=== PATIENT | female | born 2000 | race Caucasian/White ===

== ENCOUNTER 2019-11-09 17:28 | Emergency (ER) | payer OTHER ==
[2019-11-09] MEDS ORDERED: SODIUM CHLORIDE 0.9% 2,000 ML IV ONE (18:49)
[2019-11-09] MEDS ORDERED: ONDANSETRON 4 MG/2 ML VIAL IVP STA (18:49)
--- NOTE | 2019-11-09 19:04 | ED Physician Documentation ---
History of Present Illness - Stated complaint Stated Complaint: VOMITING/BODY ACHES/FEVER - Chief complaint Chief Complaint: General - History obtained from History obtained from: Patient - History of Present Illness Timing: How many days ago (3) Pain level max: 5 Pain level now: 4 - Additonal information Additional information: 19-year-old female presents to the emergency department with fever, cough, nasal congestion for the past 3 days. Has had vomiting for approximately 12 hours today. Feels lightheaded and dizzy. Still has mild nausea. No diarrhea. No recent antibiotics. No recent travel. She denies any possibility of . She is not breast-feeding or trying to become . Review of Systems Constitutional: reports: Fever Nose: reports: Rhinorrhea / runny nose, Congestion GI: reports: Vomiting : denies: Dysuria, Frequency, Hesitancy, Now EGA Skin: denies: Rash PD PAST MEDICAL HISTORY - Past Medical History Past Medical History: No - Present Medications Home Medications: Ambulatory Orders Medication Instructions Recorded Confirmed Ibuprofen [Motrin] 800 mg PO Q8H PRN #30 tablet 11/09/19 Ondansetron Odt [Zofran] 4 mg TL Q6H PRN #10 tablet 11/09/19 - Allergies Allergies/Adverse Reactions: Allergies Allergy/AdvReac Type Severity Reaction Status Date / Time No Known Drug Allergies Allergy Verified 11/09/19 17:34 - Living Situation Living Arrangement: reports: At home - Social History Does the pt smoke?: No Does the pt drink ETOH?: No Does the pt have substance abuse?: No PD ED PE NORMAL - Vitals Vital signs reviewed: Yes - General General: Alert and oriented X 3, No acute distress - HEENT HEENT: PERRL, Ears normal, Pharynx benign, Other (Dry lips) - Neck Neck: Supple, no meningeal sign - Cardiac Cardiac: RRR, Strong equal pulses - Respiratory Respiratory: No respiratory distress, Clear bilaterally - Abdomen Abdomen: Soft, Non tender, Non distended - Back Back: No CVA TTP, No spinal TTP - Derm Derm: Warm and dry - Extremities Extremities: No edema - Neuro Neuro: Alert and oriented X 3 - Psych Psych: Normal mood, Normal affect Results - Vitals Vitals: Vital Signs - 24 hr 11/09/19 11/09/19 17:34 21:00 Temperature 37 C 37.0 C Heart Rate 87 82 Respiratory 18 18 Rate Blood Pressure 122/79 105/67 O2 Saturation 98 98 Oxygen O2 Source Room air - Labs Labs: Laboratory Tests 11/09/19 11/09/19 11/09/19 17:40 19:04 19:04 WBC 4.4 L RBC 4.77 Hgb 13.7 Hct 41.3 MCV 86.6 MCH 28.7 MCHC 33.2 RDW 12.4 Plt Count 225 MPV 9.2 Neut # (Auto) 2.6 Lymph # (Auto) 1.0 L [place] # (Auto) 0.6 Eos # (Auto) 0.0 Baso # (Auto) 0.0 Absolute Nucleated RBC 0.00 Nucleated RBC % 0.0 Sodium 137 Potassium 4.0 Chloride 102 Carbon Dioxide 26 Anion Gap 9.0 BUN 15 Creatinine 0.7 Estimated GFR (MDRD) 107 Glucose 91 Calcium 9.4 Total Bilirubin 0.6 AST 22 ALT 33 Alkaline Phosphatase 57 Total Protein 7.6 Albumin 4.2 Globulin 3.4 Albumin/Globulin Ratio 1.2 Lipase 34 Influenza A (Rapid) Negative Influenza B (Rapid) Negative PD MEDICAL DECISION MAKING - ED course Complexity details: reviewed results, re-evaluated patient, considered differential, d/w patient ED course: Patient appears to have a viral syndrome. She is well-appearing, nontoxic. Feels much better after IV fluids and Zofran. Tolerating p.o. without diffi culty. Influenza swabs are negative. We will continue supportive care and have her follow-up with her doctor. Patient counseled regarding signs and symptoms for which I believe and urgent re-evaluation would be necessary. Patient with good understanding of and agreement to plan and is comfortable going home at this time This document was made in part using voice recognition software. While efforts are made to proofread this document, sound alike and grammatical errors may occur. Departure - Departure Disposition: 01 Home, Self Care Clinical Impression: Viral syndrome, Body aches Vomiting Qualifiers: Vomiting type: unspecified Vomiting Intractability: unspecified Nausea presence: unspecified Qualified Code(s): R11.10 - Vomiting, unspecified Condition: Good Instructions: ED Viral Syndrome, ED Nausea Vomiting Follow-Up: your,doctor in 1 week [Other] Prescriptions: Ibuprofen [Motrin] 800 mg PO Q8H PRN #30 tablet PRN Reason: PAIN &/OR FEVER Ondansetron Odt [Zofran] 4 mg TL Q6H PRN #10 tablet PRN Reason: Nausea / Vomiting Comments: Drink plenty of fluids and rest. Return if you worsen. Discharge Date/Time: 11/09/19 21:00
[2019-11-09 19:09] LABS: BASOPHILS % (AUTO) 0.5 %; EOSINOPHILS % (AUTO) 0.9 %; HGB - HEMOGLOBIN 13.7 g/dL (12.0-16.0); LYMPHOCYTES % (AUTO) 23.4 %; MEAN CORPUSCULAR HEMOGLOBIN 28.7 pg (27.0-31.0); MEAN CORPUSCULAR HGB CONC 33.2 g/dL (32.0-36.0); MEAN CORPUSCULAR VOLUME 86.6 fL (81.0-99.0); MEAN PLATELET VOLUME 9.2 fL (7.9-10.8); MONOCYTES # (AUTO) 0.6 10^3/uL (0.0-1.0); MONOCYTES % (AUTO) 14.7 %; NEUTROPHILS # (AUTO) 2.6 10^3/uL (1.5-6.6); PLT - PLATELET COUNT 225 10^3/uL (130-450); RED BLOOD COUNT 4.77 10^6/uL (4.20-5.40); RED CELL DISTRIBUTION WIDTH 12.4 % (12.0-15.0); WHITE BLOOD COUNT 4.4 x10^3/uL (4.8-10.8)
[2019-11-09 19:28] LABS: ALBUMIN 4.2 g/dL (3.2-5.5); ALBUMIN/GLOBULIN RATIO 1.2 (1.0-2.2); BILIRUBIN,TOTAL 0.6 mg/dL (0.2-1.0); CALCIUM 9.4 mg/dL (8.5-10.3); CREATININE 0.7 mg/dL (0.4-1.0); TOTAL PROTEIN 7.6 g/dL (6.7-8.2)
[2019-11-09] MEDS ORDERED: KETOROLAC 30 MG/ML VIAL IVP STA (20:06)
[2019-11-09 21:17] VITALS: BP 105/67
== END 2019-11-09 21:00 | disposition home or self-care (01) ==
LOC: ED 17:28
DX: B34.9 Viral infection, unspecified (principal); R11.2 Nausea with vomiting, unspecified
CPT/HCPCS: 36415; 80053; 83690; 85025; 87275; 87276; 96361; 96374; 96375; 99283

== ENCOUNTER 2019-12-06 21:02 | Emergency (ER) | payer OTHER ==
--- NOTE | 2019-12-06 21:15 | ED Physician Documentation ---
History of Present Illness - Stated complaint Stated Complaint: ZAYAS - Chief complaint Chief Complaint: Neuro - History obtained from History obtained from: Patient (The patient is a 19-year-old female With a chief complaint of migraine headache.Patient reports that she gets to migraines a week she takes Imitrex tonight her Imitrex did not work she reports that she has been to the emergency department too many times to count in her life for migraine headaches. She reports reports that this is typical of her migraine headaches it is not the worst headache of her life it is not sudden in onset it is not maximal in intensity she denies any history in herself or family of cerebral aneurysms or subarachnoid hemorrhage she reports photophobia with an aura and she also denies any neck pain or rashes or fevers she reports she is up-to-date on all of her immunizations.She denies any trauma and denies being anticoagulated.) Review of Systems Constitutional: reports: Reviewed and negative Eyes: reports: Reviewed and negative Ears: reports: Reviewed and negative Nose: reports: Reviewed and negative Throat: reports: Reviewed and negative Cardiac: reports: Reviewed and negative Respiratory: reports: Reviewed and negative GI: reports: Reviewed and negative : reports: Reviewed and negative Skin: reports: Reviewed and negative Musculoskeletal: reports: Reviewed and negative Neurologic: reports: Headache Psychiatric: reports: Reviewed and negative Endocrine: reports: Reviewed and negative Immunocompromised: reports: Reviewed and negative PD PAST MEDICAL HISTORY - Past Medical History : Kidney stones - Past Surgical History HEENT: Tonsil/Adenoidectomy - Present Medications Home Medications: Ambulatory Orders Medication Instructions Recorded Confirmed Ondansetron Odt [Zofran] 4 mg TL Q6H PRN #10 tablet 11/09/19 12/06/19 SUMAtriptan [Imitrex] 25 mg PO DAILY PM 12/06/19 12/06/19 Sertraline HCl 75 mg PO DAILY 12/06/19 12/06/19 - Allergies Allergies/Adverse Reactions: Allergies Allergy/AdvReac Type Severity Reaction Status Date / Time No Known Drug Allergies Allergy Verified 12/06/19 21:38 - Social History Does the pt smoke?: No Smoking Status: Never smoker Does the pt drink ETOH?: No Does the pt have substance abuse?: No - Immunizations Immunizations are current?: Yes PD ED PE NORMAL - Vitals Vital signs reviewed: Yes - General General: Alert and oriented X 3, No acute distress, Well developed/nourished, Other (when entering the room the patient is covering her eyes and the lights are off in the room. ) - HEENT HEENT: Atraumatic, PERRL, Moist mucous membranes, Pharynx benign, Dentition benign - Neck Neck: Supple, no meningeal sign - Cardiac Cardiac: RRR, No murmur - Respiratory Respiratory: Clear bilaterally - Abdomen Abdomen: Normal bowel sounds, Soft, Non tender, Non distended - Derm Derm: Warm and dry - Extremities Extremities: No deformity - Neuro Neuro: Alert and oriented X 3, otologist 2-12 intact, No motor deficit, No sensory deficit, Normal speech - Psych Psych: Normal mood, Normal affect Results - Vitals Vitals: Vital Signs - 24 hr 12/06/19 12/06/19 21:11 21:53 Temperature 36.9 C Heart Rate 93 60 Respiratory 18 16 Rate Blood Pressure 150/101 H 144/103 H O2 Saturation 95 99 Oxygen O2 Source Room air - Labs Labs: Laboratory Tests 12/06/19 12/06/19 21:32 21:45 WBC 5.0 RBC 4.67 Hgb 13.4 Hct 41.0 MCV 87.8 MCH 28.7 MCHC 32.7 RDW 12.1 Plt Count 244 MPV 9.3 Neut # (Auto) 1.7 Lymph # (Auto) 2.7 [place] # (Auto) 0.4 Eos # (Auto) 0.1 Baso # (Auto) 0.0 Absolute Nucleated RBC 0.00 Nucleated RBC % 0.0 Sodium 140 Potassium 3.3 L Chloride 104 Carbon Dioxide 25 Anion Gap 11.0 BUN 10 Creatinine 0.9 Estimated GFR (MDRD) 80 L Glucose 92 Calcium 9.2 Total Bilirubin 0.4 AST 19 ALT 17 Alkaline Phosphatase 45 Total Protein 7.2 Albumin 3.8 Globulin 3.4 Albumin/Globulin Ratio 1.1 Lipase 30 PD MEDICAL DECISION MAKING - ED course Complexity details: re-evaluated patient (22:09 patient resting comfortably, reports headache is resolved and would like to be discharged home at this time, will drive patient home.), other (history and exam are consistent with migraine headache. will treat with ivf diphenhydramine and compazine) Departure - Departure Disposition: Home, Self Care Clinical Impression: Migraine Qualifiers: Migraine type: with aura Status migrainosus presence: without status migrainosus Intractability: not intractable Qualified Code(s): G43.109 - Migraine with aura, not intractable, without status migrainosus Headache Qualifiers: Headache type: other headache syndrome Qualified Code(s): G44.89 - Other headache syndrome Condition: Good Instructions: ED Headache Migraine Follow-Up: Provider,Other [Primary Care Provider] -
[2019-12-06] MEDS ORDERED: PROCHLORPERAZINE 10 MG/2 ML VIAL IVP STA (21:21)
[2019-12-06] MEDS ORDERED: diphenhydrAMINE INJ 50 MG/ML VIAL IVP STA (21:21)
[2019-12-06] MEDS: SODIUM CHLORIDE 0.9% 1,000 ML IV ONE ×2 (21:35→21:39)
[2019-12-06 21:37] LABS: BASOPHILS % (AUTO) 0.6 %; EOSINOPHILS # (AUTO) 0.1 10^3/uL (0.0-0.7); EOSINOPHILS % (AUTO) 2.6 %; HGB - HEMOGLOBIN 13.4 g/dL (12.0-16.0); LYMPHOCYTES # (AUTO) 2.7 10^3/uL (1.5-3.5); LYMPHOCYTES % (AUTO) 54.1 %; MEAN CORPUSCULAR HEMOGLOBIN 28.7 pg (27.0-31.0); MEAN CORPUSCULAR HGB CONC 32.7 g/dL (32.0-36.0); MEAN CORPUSCULAR VOLUME 87.8 fL (81.0-99.0); MEAN PLATELET VOLUME 9.3 fL (7.9-10.8); MONOCYTES # (AUTO) 0.4 10^3/uL (0.0-1.0); MONOCYTES % (AUTO) 8.4 %; NEUTROPHILS # (AUTO) 1.7 10^3/uL (1.5-6.6); NEUTROPHILS % (AUTO) 34.1 %; PLT - PLATELET COUNT 244 10^3/uL (130-450); RED BLOOD COUNT 4.67 10^6/uL (4.20-5.40); RED CELL DISTRIBUTION WIDTH 12.1 % (12.0-15.0)
[2019-12-06 22:05] LABS: ALBUMIN 3.8 g/dL (3.2-5.5); ALBUMIN/GLOBULIN RATIO 1.1 (1.0-2.2); BILIRUBIN,TOTAL 0.4 mg/dL (0.2-1.0); CALCIUM 9.2 mg/dL (8.5-10.3); CREATININE 0.9 mg/dL (0.4-1.0); TOTAL PROTEIN 7.2 g/dL (6.7-8.2)
[2019-12-06 22:24] VITALS: BP 136/86
== END 2019-12-06 22:23 | disposition home or self-care (01) ==
LOC: ED 21:02
DX: G43.109 Migraine with aura, not intractable, without status migrainosus (principal); G44.89 Other headache syndrome
CPT/HCPCS: 36415; 80053; 83690; 85025; 96361; 96374; 96375; 99283; 99284; J1200

== ENCOUNTER 2020-03-09 08:00 | Outpatient (CLI) | payer OTHER ==
[2020-03-09 20:56] LABS: TRICHOMONAS VAGINALIS DNA NEGATIVE (NEGATIVE)
== END 2020-03-09 23:59 | disposition home or self-care (01) ==
LOC: LAB.R 08:00
PROVIDERS: ATTEND Advanced Practice Midwife
DX: O02.1 Missed abortion (principal)
CPT/HCPCS: 36415; 84702; 87491; 87591; 87661

== ENCOUNTER 2020-03-09 15:03 | Outpatient (CLI) | payer OTHER | END 2020-03-09 23:59 | disposition home or self-care (01) | LOC: LAB.WCP 15:03 | PROVIDERS: ATTEND Advanced Practice Midwife | DX: O02.1 Missed abortion (principal) | CPT/HCPCS: 36415; 84702 ==

== ENCOUNTER 2021-05-08 17:02 | Emergency (ER) | payer OTHER ==
[2021-05-08 17:13] VITALS: BP 134/90
[2021-05-08] MEDS ORDERED: KETOROLAC 15 MG/ML VIAL IVP STA (20:05)
[2021-05-08] MEDS ORDERED: diphenhydrAMINE INJ 50 MG/ML VIAL IVP STA (20:05)
[2021-05-08] MEDS ORDERED: METOCLOPRAMIDE 10 MG/2 ML VIAL IVP STA (20:05)
--- NOTE | 2021-05-08 20:12 | ED Physician Documentation ---
PD HPI HEADACHE - Stated complaint Stated Complaint: ZAYAS - Chief complaint Chief Complaint: Neuro - History obtained from History obtained from: Patient - Additional information Additional information: 20-year-old with history of migraine headaches has had a migraine for 5 days. It is typical but worse than usual. It is associated with nausea, light sensitivity. She had some chills last night but no measured fevers. No neck stiffness. She tried Imitrex without relief. Review of Systems Constitutional: reports: Chills, Sweats. denies: Fever Nose: denies: Rhinorrhea / runny nose Cardiac: reports: Reviewed and negative Respiratory: reports: Reviewed and negative PD PAST MEDICAL HISTORY - Past Medical History Past Medical History: Yes Neuro: Headaches, Migraines : Kidney stones - Past Surgical History Past Surgical History: Yes HEENT: Tonsil/Adenoidectomy - Present Medications Home Medications: Ambulatory Orders Medication Instructions Recorded Confirmed SUMAtriptan [Imitrex] 25 mg PO DAILY PM 12/06/19 05/08/21 - Allergies Allergies/Adverse Reactions: Allergies Allergy/AdvReac Type Severity Reaction Status Date / Time No Known Drug Allergies Allergy Verified 05/08/21 17:09 - Social History Does the pt smoke?: No Smoking Status: Never smoker Does the pt drink ETOH?: No Does the pt have substance abuse?: No - Immunizations Immunizations are current?: Yes - POLST Patient has POLST: No PD ED PE NORMAL - Vitals Vital signs reviewed: Yes - General General: Alert and oriented X 3, Other (She appears uncomfortable and light sensitive) - HEENT HEENT: PERRL, EOMI - Neck Neck: Supple, no meningeal sign (No meningismus per se, but flexion of the neck does make her headache worse) - Neuro Neuro: Alert and oriented X 3, counter roller 2-12 intact, No motor deficit, No sensory deficit, Normal speech Results - Vitals Vitals: Vital Signs - 24 hr 05/08/21 05/08/21 17:09 19:13 Temperature 37.2 C 37.2 C Heart Rate 78 78 Respiratory 18 18 Rate Blood Pressure 134/90 H 134/90 H O2 Saturation 96 96 Oxygen O2 Source Room air PD MEDICAL DECISION MAKING - ED course ED course: 20-year-old woman presents with migraine headache. Nothing in the history or physical to be concerned about subarachnoid hemorrhage or meningitis or other infection. After the administration of Reglan and Benadryl and Toradol IV headache had gone from a 9 to a 6 and subsequently was given a small dose of IV Haldol and subcutaneous Imitrex with complete relief. Departure - Departure Disposition: 01 Home, Self Care Clinical Impression: Migraine Qualifiers: Migraine type: without aura Status migrainosus presence: with status migrainosus Intractability: intractable Qualified Code(s): G43.011 - Migraine without aura, intractable, with status migrainosus Condition: Good Record reviewed to determine appropriate education?: Yes Instructions: ED Headache Migraine Comments: Call your doctor to arrange a follow-up appointment, make the next available appointment. In the interim, return anytime if worse or if new symptoms develop.
[2021-05-08] MEDS ORDERED: SUMAtriptan 6 MG/0.5 ML VIAL SUBQ STA (21:15)
[2021-05-08] MEDS ORDERED: HALOPERIDOL 5 MG/ML VIAL IVP ONE (21:15)
== END 2021-05-08 22:11 | disposition home or self-care (01) ==
LOC: ED 17:02
DX: G43.011 Migraine without aura, intractable, with status migrainosus (principal)
CPT/HCPCS: 96374; 96375; 99283